=== PATIENT | female | born 1985 | race Hispanic/Latino ===

== ENCOUNTER 2018-09-13 02:59 | Emergency (ER) | payer OTHER ==
[2018-09-13 04:12] VITALS: BP 123/89
[2018-09-13] MEDS ORDERED: TORADOL IM ONE (07:36)
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
== END 2018-09-13 08:24 | disposition home or self-care (01) ==
LOC: ED 02:59
DX: M54.16 Radiculopathy, lumbar region (principal); M54.40 Lumbago with sciatica, unspecified side; F17.200 Nicotine dependence, unspecified, uncomplicated; Z90.49 Acquired absence of other specified parts of digestive tract
CPT/HCPCS: 96372; 99282; J1885